=== PATIENT | male | born 1990 | race Caucasian/White ===

== ENCOUNTER 2019-06-21 13:26 | Emergency (ER) | payer MEDICAID ==
[~2019-06-21] VITALS: Ht 172.7 cm; Wt 81.6 kg
[2019-06-21 13:51] VITALS: BP 116/81
== END 2019-06-21 16:27 | disposition home or self-care (01) ==
LOC: ER 13:26
DX: G44.009 Cluster headache syndrome, unspecified, not intractable (principal); F41.9 Anxiety disorder, unspecified
CPT/HCPCS: 70450